=== PATIENT | female | born 1950 | race Caucasian/White ===

== ENCOUNTER 2019-04-04 20:14 | Emergency (ER) | payer MEDICARE ==
[~2019-04-04] VITALS: Ht 162.6 cm; Wt 73.6 kg
[2019-04-04 20:52] LABS: BASOPHILS # (AUTO) 0.1 X10'3 (0-0.2); BASOPHILS % (AUTO) 0.9 % (0-1); EOSINOPHILS # (AUTO) 0.1 X10'3 (0-0.9); HEMATOCRIT 40.6 % (35.0-45.0); LYMPHOCYTES # (AUTO) 2.5 X10'3 (1.1-4.8); LYMPHOCYTES % (AUTO) 32.1 % (21-51); MEAN CORPUSCULAR HEMOGLOBIN 33.5 PG (27.0-31.0); MEAN CORPUSCULAR HGB CONC 34.6 g/dL (33.0-36.5); MEAN CORPUSCULAR VOLUME 96.8 FL (78-98); MEAN PLATELET VOLUME 8.3 FL (7.4-10.4); MONOCYTES # (AUTO) 0.5 X10'3 (0-0.9); MONOCYTES % (AUTO) 6.3 % (2-12); NEUTROPHILS # (AUTO) 4.6 X10'3 (1.8-7.7); NEUTROPHILS % (AUTO) 59.7 % (42-75); PLATELET COUNT 311 X10'3 (140-440); RED CELL DISTRIBUTION WIDTH 13.2 % (11.5-14.5); WHITE BLOOD COUNT 7.7 X10'3 (4.5-11.0)
[2019-04-04 21:07] LABS: ALANINE AMINOTRANSFERASE 44 U/L (12-78); ALBUMIN/GLOBULIN RATIO 0.9 (1.1-1.5); ALKALINE PHOSPHATASE 101 IU/L (46-116); ANION GAP 11 (8-16); ASPARTATE AMINO TRANSFERASE 25 U/L (10-37); BILIRUBIN,TOTAL 0.5 MG/DL (0.1-1.0); BLOOD UREA NITROGEN 21 MG/DL (7-18); BUN/CREATININE RATIO 25.9 (6.6-38.0); CHLORIDE 104 MMOL/L (99-107); CREATININE 0.81 MG/DL (0.40-0.90); SODIUM 142 MMOL/L (135-145); TOTAL CARBON DIOXIDE 26.9 MMOL/L (24-32); TOTAL PROTEIN 8.3 G/DL (6.4-8.2); eGFR 70 ML/MIN
[2019-04-04 21:08] LABS: PARTIAL THROMBOPLASTIN TIME 25 SECONDS (22-32)
[2019-04-04 21:22] LABS: GLUCOSE 169 MG/DL (70-104); POTASSIUM 3.6 MMOL/L (3.5-5.1)
--- NOTE | 2019-04-04 21:23 | NUR ---
pt denies chest pain at this time. She states she is more scared about the previous event than anything. She states she was sitting on the couch approx 2 hrs ago and her heart began racing in the 130-150 range according to her BP cuff. pt became diaphoretic and weak and slightly SOB. she then took a metoprolol and her s\s resolved approx 20-30 mins later.
--- NOTE | 2019-04-04 23:18 | NUR ---
PT REMAINS PAIN FREE. NO CHANGES IN CONDITION. SHE HAS REMAINED IN NSR AND DENIES NEEDS AT THIS TIME. PT UPDATED ON PLAN OF CARE. SHE IS STILL AWAITING MD AT THIS TIME. FIRST TROPONIN WAS NEGATIVE. 3HR TROP IS DUE IN APPROX 30 MINS. ADVISED PT TO LET ME KNOW IF HER CONDITION CHANGES.
--- NOTE | 2019-04-05 00:06 | NUR ---
ADDITIONAL LABS HAVE BEEN DRAWN AND ARE PENDING. PT HAS BEEN UPDATED ONCE AGAIN ON PLAN OF CARE.
[2019-04-05 01:05] VITALS: BP 153/74
== END 2019-04-05 01:08 | disposition home or self-care (01) ==
LOC: ER 20:15
DX: R00.2 Palpitations (principal); Z88.1 Allergy status to other antibiotic agents
CPT/HCPCS: 36415; 71045; 80053; 84439; 84443; 84484; 85025; 85610; 85730; 93005; 99284